=== PATIENT | female | born 1990 | race American Indian/Alaskan Native ===

== ENCOUNTER 2021-10-15 22:58 | Emergency (ER) | payer SELFPAY ==
[2021-10-15] MEDS ORDERED: PHENYLEPHRINE 0.25% NASAL SPRAY 15ML NS ONE (23:46)
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
[2021-10-16 03:53] VITALS: BP 213/131
== END 2021-10-16 04:09 | disposition home or self-care (01) ==
LOC: ED 22:58
DX: R04.0 Epistaxis (principal); M54.50 Low back pain, unspecified; I10 Essential (primary) hypertension; Z79.899 Other long term (current) drug therapy
CPT/HCPCS: 99282